=== PATIENT | female | born 1995 | race Two or more races ===

== ENCOUNTER 2021-07-20 14:39 | Outpatient (CLI) | payer OTHER ==
[2021-07-21 14:17] LABS: SARS-CoV-2 PCR by NAA Not Detected (NotDetected)
== END 2021-07-20 14:40 | disposition home or self-care (01) ==
LOC: CSHLAB 14:39
PROVIDERS: ATTEND Student in an Organized Health Care Education/Training Program
DX: Z20.822 Contact with and (suspected) exposure to COVID-19 (principal)
CPT/HCPCS: U0003; U0005